=== PATIENT | male | born 1995 | race Caucasian/White ===

== ENCOUNTER 2023-03-06 17:01 | Emergency (ER) | payer OTHER, MEDICAID, SELFPAY ==
[2023-03-06 17:07] VITALS: BP 157/94; PULSE 109; RESP 20; TEMP 37.2; O2SAT 97; BMI 24.4
[2023-03-06 17:46] VITALS: BP 143/83; PULSE 92; O2SAT 97
--- NOTE | 2023-03-06 18:01 | DI.US.S_ITS ---
PROCEDURE: US PERIPH VENOUS LOW EXTREM RT INDICATIONS: R calf pain/swelling--dimer elevated per pt (outside lab) TECHNIQUE: Real-time imaging, as well as color and pulse Doppler interrogation, were performed of the lower extremity deep veins from the inguinal ligament to the popliteal fossa, with documentation of the visualized calf veins. COMPARISON: None. FINDINGS: Femoral veins in the femoral veins are patent. There is completely occlusive thrombus seen within the popliteal veins as well as within the calf veins. IMPRESSION: Extensive occlusive deep venous thrombosis seen involving the popliteal vein and the calf veins. Dictated by: Killian Porter M.D. on 03/06/2023 at 17:51 Approved by: Killian Porter M.D. on 03/06/2023 at 17:52
--- NOTE | 2023-03-06 18:09 | ED.RECABL ---
HPI - Recheck/Abnormal Lab/Rx <Griselda Macario PA-C - Last Filed: 03/06/23 19:43> General Chief Complaint: Recheck/Abnormal Lab/Rx Stated Complaint: sent for labwork Time Seen by Provider: 03/06/23 17:52 Source: patient Mode of arrival: Ambulatory History of Present Illness HPI narrative: 27-year-old male presents with concern for being sent from walk-in clinic after having an elevated D-dimer lab today drawn. Patient shows his lab results at 1050 4 his D-dimer. Patient states he went in for evaluation today because he has been having pain and swelling of his right calf for the past few weeks. 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 He does endorse that his calf pain is better when he flexes and extends at the ankle because it feels like it is ?stretching things. He otherwise has been in his usual state of health and denies any other complaints or concerns. Related Data Previous Rx's Medication Instructions Recorded apixaban 5 mg tablet (Eliquis) 5 mg PO BID 74 days #148 tabs 03/06/23 Allergies Allergy/AdvReac Type Severity Reaction Status Date / Time Beta-Lactam Allergy Unknown Uncoded 06/26/17 13:06 Cephalosporin Allergy Unknown Uncoded 06/26/17 13:06 Penicillin Allergy Unknown Uncoded 06/26/17 13:06 Review of Systems <Griselda Macario PA-C - Last Filed: 03/06/23 19:43> Review of Systems Narrative: See HPI Patient History <Griselda Macario PA-C - Last Filed: 03/06/23 19:43> tobacco type: vaping alcohol intake frequency: 0-2 drinks per day Alcohol type: beer Substance Use Type: marijuana Exam <Griselda Macario PA-C - Last Filed: 03/06/23 19:43> Narrative Exam Narrative: GENERAL: [27] year old patient appears stated age. Well-developed patient, in mild distress. HEAD: Atraumatic. Normocephalic. EYES: Pupils equal round and reactive. Extraocular motions intact. No scleral icterus. No injection or drainage. ENT: Nose without bleeding, purulent drainage. Airway patent. NECK: Trachea midline. Non tender CARDIOVASCULAR: Regular rate and rhythm without murmurs, gallops, or rubs. RESPIRATORY: Clear to auscultation. Breath sounds equal bilaterally. No wheezes, rales, or rhonchi. EXTREMITIES: Moving all extremities, slightly antalgic gait, limping and favoring right leg. There is notable swelling of the right calf, tenderness of the posterior upper and lateral calf as well as heat of the right calf compared to the left. There is no appreciable erythema. Patient has an Josué wrap in place around his ankle with some swelling and edema of the foot. Range of motion of the ankle is intact and dorsalis pedis posterior tibialis intact. BACK: Nontender without deformity or crepitance. No flank tenderness. NEURO: AOx3. SKIN: No rash or erythema of visible areas Initial Vital Signs Initial Vital Signs: Vital Signs Temperature 98.9 F 03/06/23 17:07 Pulse Rate 109 H 03/06/23 17:07 Respiratory Rate 20 03/06/23 17:07 Blood Pressure 157/94 H 03/06/23 17:07 Pulse Oximetry 97 03/06/23 17:07 Oxygen Delivery Method Room Air 03/06/23 17:07 <Talita Contreras MD - Last Filed: 03/06/23 20:19> Initial Vital Signs Initial Vital Signs: Vital Signs Temperature 98.9 F 03/06/23 17:07 Pulse Rate 109 H 03/06/23 17:07 Respiratory Rate 20 03/06/23 17:07 Blood Pressure 157/94 H 03/06/23 17:07 Pulse Oximetry 97 03/06/23 17:07 Oxygen Delivery Method Room Air 03/06/23 17:07 Scores <Griselda Macario PA-C - Last Filed: 03/06/23 19:43> Wells' Criteria for PE Clinical signs and symptoms of DVT: Yes PE is #1 Dx or equally likely: No Heart rate > 100: No Immobilization at least 3 days or surg in previous 4 weeks: No History of PE or DVT: No Hemoptysis: No Malignancy w/Treatment within 6 months or palliative: No Wells' PE Score total: 3 <Talita Contreras MD - Last Filed: 03/06/23 20:19> Wells' Criteria for PE Wells' PE Score total: 3 Course <Griselda Macario PA-C - Last Filed: 03/06/23 19:43> Orders Ordered: ED Orders 03/06/23 18:01 perip venous low extrem rt Stat 03/06/23 18:50 Consult to BASE[employer] INSPECTOR - Sales Marketing Coordinator Stat Discontinued Medications Apixaban (Apixaban 5 Mg Tablet) 10 mg PO NOW ONE Stop: 03/06/23 19:10 Last Admin: 03/06/23 19:18 Dose: 10 mg Documented By: ANDREA Vital Signs Vital signs: Vital Signs - 8 hr 03/06/23 17:07 03/06/23 17:46 03/06/23 19:27 Temperature 98.9 F 97.4 F L Pulse Rate 109 H 92 H 91 H Respiratory Rate 20 14 Blood Pressure 157/94 H 143/83 H 149/79 H Pulse Oximetry 97 97 95 Oxygen Delivery Method Room Air Room Air Room Air <Talita Contreras MD - Last Filed: 03/06/23 20:19> Orders Ordered: ED Orders 03/06/23 18:01 perip venous low extrem rt Stat 03/06/23 18:50 Consult to [facility] [place] - Sales Marketing Coordinator Stat Discontinued Medications Apixaban (Apixaban 5 Mg Tablet) 10 mg PO NOW ONE Stop: 03/06/23 19:10 Last Admin: 03/06/23 19:18 Dose: 10 mg Documented By: ANDREA Vital Signs Vital signs: Vital Signs - 8 hr 03/06/23 17:07 03/06/23 17:46 03/06/23 19:27 Temperature 98.9 F 97.4 F L Pulse Rate 109 H 92 H 91 H Respiratory Rate 20 14 Blood Pressure 157/94 H 143/83 H 149/79 H Pulse Oximetry 97 97 95 Oxygen Delivery Method Room Air Room Air Room Air MDM - Recheck/Abnormal Lab/Rx <Griselda Macario PA-C - Last Filed: 03/06/23 19:43> Differential Diagnosis Differential diagnosis: Likely other (DVT, muscle strain) Imaging Data US - DVT: My Impression: Agree with Radiology interpretation Radiologist's Impression: [address] [address] Ultrasound Report Signed Patient: Oswald Laughlin MR#: [id number] : 1995 Acct:[id number] Age/Sex: 27 / M Date of Service: 03/06/23 Loc: ED Accession Number: [id number] Procedure: US perip venous low extrem rt Ordering Provider: Griselda Macario P.A-C PROCEDURE: US PERIP VENOUS LOW EXTREM RT INDICATIONS: R calf pain/swelling--dimer elevated per pt (outside lab) TECHNIQUE: Real-time imaging, as well as color and pulse Doppler interrogation, were performed of the lower extremity deep veins from the inguinal ligament to the popliteal fossa, with documentation of the visualized calf veins. COMPARISON: None. FINDINGS: Femoral veins in the femoral veins are patent. There is completely occlusive thrombus seen within the popliteal veins as well as within the calf veins. IMPRESSION: Extensive occlusive deep venous thrombosis seen involving the popliteal vein and the calf veins. Dictated by: Killian Porter M.D. on 03/06/2023 at 17:51 Approved by: Killian Porter M.D. on 03/06/2023 at 17:52 Treatment and disposition Shared decision making:: Shared decision-making was used to determine the patient's plan of care and plan for outpatient follow-up MDM Narrative Medical decision making narrative: This is a generally well-appearing 27-year-old male who presents with concern for right calf pain for the past few weeks seen as an outpatient at clinic/urgent care today and had a elevated D-dimer of 1050 ng / mL which he shows results of on his phone. Sent here for further evaluation. Patient has had no symptoms suggesting a PE, but does have concerning findings for DVT particularly in the setting of his elevated D-dimer, with tenderness of the right posterior calf mild associated heat without erythema, recent injury to the right ankle, given his elevated dimer and exam findings ultrasound is obtained for further evaluation and is notable for a completely occluding clot in the popliteal vein and calf veins without involvement of proximal veins. Patient is wells criteria was 3, his reite score is low risk. Discuss this patient with Dr. Contreras prior to discharge specifically regarding pursuing PE study given he has no respiratory symptoms chest pain or shortness of breath and his oxygen sats are normal this is not pursued. Patient is started on Eliquis with 1st dose in the emergency department and prescription for 2 months course advised close follow-up with PCP and repeat imaging in 4-8 weeks for re-evaluation, return precautions ED precautions provided, follow-up plan discussed, all questions answered. Discharge Plan Departure Patient Disposition: Home Clinical Impression: Acute deep vein thrombosis of calf Qualifiers: Laterality: right Qualified Code(s): I82.4Z1 - Acute embolism and thrombosis of unspecified deep veins of right distal lower extremity Activity Restrictions/Additional Instructions: *You have been diagnosed with [deep vein thrombosis of her right calf] *What to do: *Please continue to take your regular medications as directed. [ 1] New medication prescriptions sent to your pharmacy: [Eliquis] [ ] New medication written as a paper prescription [ ] No new medications given *Please follow up with your primary care provider in 2-3 days, call for an appointment. Let them know you were seen in the Emergency Department and that we ask that you be seen in follow up. We will electronically transmit a record of today's note if your PCP is in our system. You have a blood clot in your pain of her right calf which was seen on ultrasound today. You were sent here after you had an elevated D-dimer lab at an outside clinic. We started you on a anticoagulant medication called apixaban or Eliquis, you received your 1st dose in the emergency department today and you need to continue taking this as prescribed, for the 1st week he need to take it 10 mg twice daily and after that take the remainder of your medication 5 mg twice daily for 2 more months. You will also have to have primary care follow-up and a recheck you may need to have a repeat ultrasound in approximately 4-8 weeks' time for re-evaluation and recheck of the clot. If you do develop other new symptoms such as shortness of breath, dizziness, lightheadedness, chest pain or other symptoms of concern or worsening swelling pain or redness of your calf please do not hesitate to seek re-evaluation immediately. *If you do not have a primary care provider please contact the [facility] Resource line at [phone]. They will ask some questions about your medical history and help get you set up with a doctor in the community. *Return to Emergency Department if you should have any new, worsening or concerning symptoms, such as [fever greater than 101 F, shaking chills, worsening pain, persistent vomiting or other bothersome symptoms] Prescriptions: New Eliquis 5 mg tablet 5 mg PO BID 74 Days Qty: 148 0RF Rx Instructions: Take 2 tablets twice daily (10 mg twice daily) for 7 days, then take 1 tablet twice daily (5 mg twice daily) for 60 additional days Referrals: *[facility],ED* [Primary Care Provider] - Stand Alone Forms: Patient Portal/API ED Sign-out <Talita Contreras MD - Last Filed: 03/06/23 20:19> Cosign ED Attending Cosignature Attestation: I did not see this patient. I was available all times for consultation.
[2023-03-06] MEDS: APIXABAN 5 MG TABLET 10 MG PO (19:18)
[2023-03-06 19:27] VITALS: BP 149/79; PULSE 91; RESP 14; TEMP 36.3; O2SAT 95
--- NOTE | 2023-03-07 12:15 | CM.SWNOTE ---
ED BANQUET CHEF follow up Note BANQUET CHEF receives consult from battery recharger due to concern for patient's lack of insurance and in need of assistance setting this up. BANQUET CHEF reviews EMR and identified that patient has Medicaid and [employer] insurance. BANQUET CHEF consults with registration who confirms patient's current [employer] Medicaid insurance. BANQUET CHEF calls patient and leaves VM, BANQUET CHEF offers assitance and encourages patient to f/u with PCP. Mansi Presley, COFFEE MAKER SERVICER
== END 2023-03-06 19:36 | disposition home or self-care (01) ==
PROVIDERS: Emergency Provider Student in an Organized Health Care Education/Training Program
DX: I82.4Z1 Acute embolism and thrombosis of unspecified deep veins of right distal lower extremity (principal)
CPT/HCPCS: 93971; 99283